=== PATIENT | female | born 2000 | race Caucasian/White ===

== ENCOUNTER 2020-08-22 23:43 | Emergency (ER) | payer MEDICAID ==
[~2020-08-22] VITALS: Ht 162.5 cm; Wt 70.0 kg
--- NOTE | 2020-08-23 00:03 | ED GU-Female ---
General Stated Complaint: LEFT SIDE PAIN/ ANXIETY ATTACKS Source: patient Exam Limitations: no limitations History of Present Illness Date Seen by Provider: Aug 22, 2020 Time Seen by Provider: 23:52 Initial Comments Patient to ER by private conveyance with her family chief complaint for 2 days she is had burning pain in her left flank. Dysuria is getting little worse. No discharge or dyspareunia. No fevers chills nausea vomiting or diarrhea. Patient states she started having anxiety attacks today after drinking a Monster energy drink. She is never drank it before. She does not typically have anxiety. Allergies and Home Medications Allergies Coded Allergies: No Known Drug Allergies (Unverified , 08/22/20) Patient Home Medication List Home Medication List Reviewed: Yes Review of Systems Review of Systems Constitutional: No chills, No fever, No malaise EENTM: No ear discharge, No ear pain Respiratory: No cough, No short of breath Cardiovascular: No edema, No palpitations Gastrointestinal: abdominal pain; No constipation, No diarrhea, No nausea Genitourinary: burning; denies discharge : No Musculoskeletal: No back pain, No joint pain Past Ohlzlas-Khkigv-Luclvq Hx Patient Social History Tobacco Use?: No Use of E-Cig and/or Vaping dev: No Substance use?: No Physical Exam Vital Signs Vital Signs - First Documented 08/23/20 00:01 Temp 36.7 Pulse 122 Resp 20 B/P (MAP) 130/81 (97) Pulse Ox 98 O2 Delivery Room Air Capillary Refill : Height, Weight, BMI Height: '" Weight: lbs. oz. kg; BMI Method: General Appearance: WD/WN, mild distress HEENT: PERRL/EOMI, pharynx normal Cardiovascular: normal peripheral pulses, regular rate, rhythm, tachycardia (120) Respiratory: no respiratory distress, no accessory muscle use Gastrointestinal: normal bowel sounds, non tender, soft, no organomegaly Back: normal inspection, no vertebral tenderness, CVA tenderness (L) (Very mild) Neurologic/Psychiatric: alert, oriented x 3, other (Very anxious affect) Progress/Results/Core Measures Suspected Sepsis SIRS Temperature: Pulse: Respiratory Rate: Blood Pressure / Mean: Results/Orders Lab Results Laboratory Tests Test 08/23/20 00:00 Range/Units Urine Color YELLOW Urine Clarity CLEAR Urine pH 6.0 5-9 Urine Specific [place] 1.010 L 1.016-1.022 Urine Protein NEGATIVE NEGATIVE Urine Glucose (UA) NEGATIVE NEGATIVE Urine Ketones NEGATIVE NEGATIVE Urine Nitrite NEGATIVE NEGATIVE Urine Bilirubin NEGATIVE NEGATIVE Urine Urobilinogen 0.2 < = 1.0 MG/DL Urine Leukocyte Esterase NEGATIVE NEGATIVE Urine RBC (Auto) 3+ H NEGATIVE Urine RBC 5-10 H /HPF Urine WBC 0-2 /HPF Urine Squamous Epithelial Cells >50 H /HPF Urine Crystals NONE /LPF Urine Bacteria LARGE H /HPF Urine Casts NONE /LPF Urine Mucus NEGATIVE /LPF Urine Culture Indicated NO My Orders Orders - MEENA VILLEDA Ua Culture If Indicated (08/22/20 23:49) Urine Bedside (08/22/20 23:49) Vital Signs/I&O 08/23/20 00:01 Temp 36.7 Pulse 122 Resp 20 B/P (MAP) 130/81 (97) Pulse Ox 98 O2 Delivery Room Air Capillary Refill : Progress Note #1: Time: 00:03 Progress Note Sinus tachycardia likely related to her anxiety and drinking of energy drink. We have encouraged her not to do that again and will observe her while we get a urinalysis. Progress Note #2: Time: 01:49 Progress Note She is having a little bit of hives and she thinks may be from some of the detergents on the sheets. She says she gets these whenever she is exposed to certain soaps. We will give her some Claritin since he is having mild itching on her legs. I suspect that her urinary tract infection would be best served with some Macrobid, Diflucan and discussed STD testing. She says she thinks is unlikely but she would like to be tested. Departure Impression Primary Impression: UTI (urinary tract infection) Qualified Codes: N30.01 - Acute cystitis with hematuria Additional Impressions: Hives Anxiety about health Disposition: 01 HOME, SELF-CARE Condition: Stable Departure-Patient Inst. Decision time for Depature: 01:51 Referrals: NO,LOCAL PHYSICIAN (PCP/Family) Primary Care Physician Patient Instructions: Urinary Tract Infection, Adult ED, Hives (DC) Add. Discharge Instructions: Drink plenty of fluids. Macrobid 1 capsule twice a day. Zyrtec or Claritin as necessary for hives. Benadryl 1 to 2 tablets every 6 hours as necessary for breakthrough itching and hives. Fluconazole 1 tablet. Expect results in the next 2 days. If we do not call you that means everything was okay and no further intervention is necessary. Scripts Fluconazole (Fluconazole) 200 Mg Tablet 200 MG PO DAILY for 1 Day, #1 TAB 0 Refills Prov: MEENA VILLEDA 08/23/20 Nitrofurantoin Monohyd/M-Cryst (Macrobid 100 mg Capsule) 100 Mg Capsule 1 TAB PO BID for 7 Days, #14 CAP 0 Refills Prov: MEENA VILLEDA 08/23/20 MEENA VILLEDA Aug 23, 2020 00:03
[2020-08-23 00:22] LABS: BILIRUBIN,URINE NEGATIVE (NEGATIVE); CLARITY,URINE CLEAR; COLOR,URINE YELLOW; GLUCOSE, URINE (UA) NEGATIVE (NEGATIVE); KETONES,URINE NEGATIVE (NEGATIVE); LEUKOCYTE ESTERASE ,URINE NEGATIVE (NEGATIVE); NITRITE,URINE NEGATIVE (NEGATIVE); PROTEIN,URINE NEGATIVE (NEGATIVE)
[2020-08-23 00:32] LABS: BACTERIA,URINE LARGE /HPF; SQUAMOUS EPITHELIAL CELL,UR >50 /HPF; WBC,URINE 0-2 /HPF
[2020-08-23] MEDS ORDERED: NITR-65 PO (01:52)
[2020-08-23] MEDS ORDERED: FLUC200T5 PO (01:52)
[2020-08-23] MEDS ORDERED: LORATADINE (CLARITIN) 10 MG TAB PO ONE (02:00)
[2020-08-23 02:06] VITALS: BP 106/73
== END 2020-08-23 02:06 | disposition home or self-care (01) ==
LOC: ER 23:47
DX: N39.0 Urinary tract infection, site not specified (principal)
CPT/HCPCS: 81000; 84703; 99283

== ENCOUNTER 2020-08-31 00:46 | Emergency (ER) | payer MEDICAID ==
[~2020-08-31] VITALS: Ht 162.6 cm; Wt 73.3 kg
[~2020-08-31 00:46] MED LIST: FLUC200T5 PO; NITR-65 PO
[2020-08-31 01:09] VITALS: BP 116/73
--- NOTE | 2020-08-31 01:36 | ED General ---
General Chief Complaint: General Problems/Pain Stated Complaint: POSS ALLERGIC RX TO COVID SHOT,TINGLING ALL OVER Source of Information: Patient History of Present Illness Date Seen by Provider: Aug 31, 2020 Time Seen by Provider: 01:20 Initial Comments PT ARRIVES VIA POV FROM HOME WITH AN AND PRE-SCHOOL AGED BOY. PT STATES SHE GOT HER FIRST PFIZER COVID-19 VACCINE YESTERDAY AROUND 11:30 AM, THEN WENT HOME AND WENT TO SLEEP AND WOKE UP AT 2300 TONIGHT, AND WHEN SHE WOKE UP SHE STATES "I BROKE OUT IN BUMPS ALL OVER MY BODY" SHE STATES THE BUMPS LASTED 10 MINUTES AND THEN WENT AWAY. STATES THE BUMPS WERE ITCHY AND SHE STILL FEELS ITCHY. STATES SHE FEELS TINGLY ALL OVER HER ARMS AND LEGS NO SWELLING ANYWHERE NO NAUSEA/VOMITING/DIARRHEA NO CHEST PAIN OR SHORTNESS OF BREATH NO SYNCOPE PT THINKS SHE IS HAVING A REACTION TO THE COVID VACCINE. THEN STATES SHE HAS HAD REACTIONS TO SOAPS AND DETERGENTS IN THE PAST AND THOUGHT MAYBE THAT WAS WHAT WAS CAUSING HER SYMPTOMS. SHE DENIES ANY NEW PRODUCTS OR FOODS. HAS NOT TAKEN ANYTHING FOR SYMPTOMS PT HAS HISTORY OF ANXIETY, AND STATES SHE TAKES AN UNKNOWN MEDICATION FOR ANXIETY, BUT HAS NOT TAKEN ANY TODAY PT [place] HERE [place] HAD A BABY 2 MONTHS AGO, IS NOT . DELIVERED AT [facility] HAD DEPO SHOT, AND NEXT ONE IS DUE 09/18/20. IS ON HER PERIOD NOW. PT WAS HERE 08/22/20 FOR ANXIETY, HAD BEEN DRINKING ALOT OF MONSTER ENERGY DRINKS AND WAS CAUSING HER TO HAVE ANXIETY SHE ALSO COMPLAINED OF THESE SAME "BUMPS" AT THAT VISIT. PT WAS DX WITH UTI AT THAT VISIT AND PLACED ON MACROBID AND FLUCONAZOLE. 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 PCP: [facility] Allergies and Home Medications Allergies Coded Allergies: No Known Drug Allergies (Unverified , 08/22/20) Home Medications Fluconazole 200 Mg Tablet, 200 MG PO DAILY Prescribed by: MEENA VILLEDA on 08/23/20151 Nitrofurantoin Monohyd/M-Cryst 100 Mg Capsule, 1 TAB PO BID Prescribed by: MEENA VILLEDA on 08/23/20151 Patient Home Medication List Home Medication List Reviewed: Yes Review of Systems Review of Systems Constitutional: no symptoms reported EENTM: no symptoms reported Respiratory: no symptoms reported Cardiovascular: no symptoms reported Gastrointestinal: no symptoms reported Genitourinary: no symptoms reported, see HPI Musculoskeletal: no symptoms reported, see HPI Skin: see HPI Psychiatric/Neurological: See HPI, Anxiety Past Czlryvv-Wvushu-Wupbft Hx Patient Social History Tobacco Use?: No (DENIES) Use of E-Cig and/or Vaping dev: No (DENIES) Substance use?: No (DENIES) Alcohol Use?: No (DENIES) Past Medical History Surgeries: Yes Gallbladder Respiratory: No Cardiac: No Neurological: No Genitourinary: Yes Bladder Infection Gastrointestinal: Yes (S/P CHOLECYSTECTOMY) Gall Bladder Disease Musculoskeletal: No Endocrine: No HEENT: No Cancer: No Psychosocial: Yes Anxiety Integumentary: No Blood Disorders: No Physical Exam Vital Signs Vital Signs - First Documented 08/31/20 01:09 Temp 36.6 Pulse 102 Resp 18 B/P (MAP) 116/73 (87) Pulse Ox 98 O2 Delivery Room Air Capillary Refill : Height, Weight, BMI Height: '" Weight: lbs. oz. kg; 26.00 BMI Method: General Appearance: No Apparent Distress, WD/WN HEENT: PERRL/EOMI, TMs Normal, Normal ENT Inspection, Pharynx Normal, Moist Mucous Membranes Neck: Normal Inspection Respiratory: Normal Breath Sounds, No Accessory Muscle Use, No Respiratory Distress Cardiovascular: Regular Rate, Rhythm, No Edema, No JVD, No Murmur, Normal Peripheral Pulses Gastrointestinal: Non Tender, Soft Back: Normal Inspection Extremity: Normal Capillary Refill, Normal Inspection, Normal Range of Motion, Non Tender, No Calf Tenderness, No Pedal Edema Neurologic/Psychiatric: Alert, Oriented x3, No Motor/Sensory Deficits, cardiopulmonary specialist II- XII Norm as Tested; No Abnormal Cerebellar Tests; Other (FLAT AFFECT) Skin: Normal Color, Warm/Dry; No Rash (THERE IS NO RASH PRESENT ANYWHERE ON BODY); Tattoos/Piercings (MULTIPLE TATTOOS) Progress/Results/Core Measures Suspected Sepsis SIRS Temperature: Pulse: Respiratory Rate: Blood Pressure / Mean: Results/Orders Vital Signs/I&O 08/31/20 01:09 Temp 36.6 Pulse 102 Resp 18 B/P (MAP) 116/73 (87) Pulse Ox 98 O2 Delivery Room Air Capillary Refill : Departure Impression Primary Impression: Anxiety Additional Impression: RECENT COVID VACCINE Disposition: HOME, SELF-CARE Condition: Stable Departure-Patient Inst. Decision time for Depature: 01:30 Referrals: [facility] Patient Instructions: COVID-19 Vaccine (mRNA) iiyuma FDA Fact Sheet Add. Discharge Instructions: TYLENOL AND MOTRIN NEEDED FOR PAIN CLARITIN OR BENADRYL NEEDED FOR RASH OR ITCHING FOLLOW UP WITH [facility] IF SYMPTOMS PERSIST, RETURN TO ER IF SYMPTOMS WORSEN All discharge instructions reviewed with patient and/or family. Voiced und erstanding. FOREST KAY DO Aug 31, 2020 01:36
== END 2020-08-31 01:39 | disposition home or self-care (01) ==
LOC: EDUNIT# 00:46 → ER 00:50
DX: F41.9 Anxiety disorder, unspecified (principal)
CPT/HCPCS: 99281

== ENCOUNTER 2020-09-06 23:30 | Emergency (ER) | payer MEDICAID ==
[~2020-09-06] VITALS: Ht 162.5 cm; Wt 75.0 kg
[2020-09-07 00:01] LABS: BILIRUBIN,URINE NEGATIVE (NEGATIVE); CLARITY,URINE CLEAR; COLOR,URINE YELLOW; GLUCOSE, URINE (UA) NEGATIVE (NEGATIVE); KETONES,URINE TRACE (NEGATIVE); LEUKOCYTE ESTERASE ,URINE NEGATIVE (NEGATIVE); NITRITE,URINE NEGATIVE (NEGATIVE); PROTEIN,URINE NEGATIVE (NEGATIVE)
[2020-09-07 00:08] LABS: BACTERIA,URINE TRACE /HPF
[2020-09-07] MEDS ORDERED: IBUPROFEN TABLET 200 MG TAB PO ONE (00:45)
--- NOTE | 2020-09-07 00:47 | ED Back Pain ---
General Chief Complaint: Back Problems Stated Complaint: LEFT SIDE PAIN Nursing Triage Note: Pt ambulatory into ER with complaint of Lower Left Back pain x1 week. Pt states that she was seen and started on an antibiotic for a UTI, but feels like the pain hasn't gotten any better. Pain worsened this evening and patient decided to come in to be seen. Source of Information: Patient Exam Limitations: No Limitations History of Present Illness Date Seen by Provider: Sep 06, 2020 Time Seen by Provider: 23:57 Allergies and Home Medications Allergies Coded Allergies: No Known Drug Allergies (Unverified , 08/22/20) Home Medications Fluconazole 200 Mg Tablet, 200 MG PO DAILY Prescribed by: MEENA VILLEDA on 08/23/20151 Nitrofurantoin Monohyd/M-Cryst 100 Mg Capsule, 1 TAB PO BID Prescribed by: MEENA VILLEDA on 08/23/20151 Past Welukix-Agvngr-Fwcake Hx Patient Social History Tobacco Use?: No Use of E-Cig and/or Vaping dev: No Substance use?: No Alcohol Use?: No Pt feels they are or have been: No Immunizations Up To Date Influenza Vaccine Up-to-Date: No; Not Current First/Initial COVID19 Vaccinat: 08/20/20 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 oz. kg; 28.00 BMI Method: Progress/Results/Core Measures Results/Orders Lab Results Laboratory Tests Test 09/06/20 23:54 Range/Units Urine Color YELLOW Urine Clarity CLEAR Urine pH 6.0 5-9 Urine Specific [place] >=1.030 1.016-1.022 Urine Protein NEGATIVE NEGATIVE Urine Glucose (UA) NEGATIVE NEGATIVE Urine Ketones TRACE H NEGATIVE Urine Nitrite NEGATIVE NEGATIVE Urine Bilirubin NEGATIVE NEGATIVE Urine Urobilinogen 0.2 < = 1.0 MG/DL Urine Leukocyte Esterase NEGATIVE NEGATIVE Urine RBC (Auto) NEGATIVE NEGATIVE Urine RBC NONE /HPF Urine WBC NONE /HPF Urine Squamous Epithelial Cells 2-5 /HPF Urine Crystals NONE /LPF Urine Bacteria TRACE /HPF Urine Casts NONE /LPF Urine Mucus LARGE H /LPF Urine Culture Indicated NO My Orders Orders - CHARLES GREGORY MD Ua Culture If Indicated (09/06/20 23:39) Ibuprofen Tablet (Motrin Tablet) (09/07/20 00:45) Vital Signs/I&O 09/07/20 00:11 Temp 37.0 Pulse 95 Resp 18 B/P (MAP) 111/71 (84) Pulse Ox 96 O2 Delivery Room Air Blood Pressure Mean: 84 Departure Impression Primary Impression: Low back pain Qualified Codes: M54.42 - Lumbago with sciatica, left side Additional Impression: Lumbar radiculopathy Disposition: HOME, SELF-CARE Condition: Stable Departure-Patient Inst. Referrals: NO,LOCAL PHYSICIAN (PCP/Family) Primary Care Physician Patient Instructions: Low Back Pain in Adults, Radiculopathy Add. Discharge Instructions: For pain you may take ibuprofen up to 600 mg every 6 hours as needed and/or Tylenol (acetaminophen) up to 1000 mg every 6 hours as needed. Gentle heat and gentle stretching may help reduce back tension. Avoid excessive bending, lifting, or and even tension on your back such as carrying a car seat. Use cyclobenzaprine at night to help your muscles relax while you sleep. Drink plenty of clear liquids to stay well-hydrated. Call with questions or concerns. Follow-up with a primary care provider if not improved in the next week or 2. Return to the ER if you have worsening symptoms. All discharge instructions reviewed with patient and/or family. Voiced understanding. CHARLES GREGORY MD Sep 07, 2020 00:47
[2020-09-07 00:52] VITALS: BP 106/70
[2020-09-07] MEDS ORDERED: CYCL10TA9 PO (12:15)
== END 2020-09-07 00:52 | disposition home or self-care (01) ==
LOC: EDUNIT# 23:30 → ER 23:34
DX: M54.16 Radiculopathy, lumbar region (principal)
CPT/HCPCS: 81000; 99283

== ENCOUNTER 2021-02-06 12:55 | Emergency (ER) | payer MEDICAID ==
[~2021-02-06] VITALS: Ht 165 cm; Wt 76.0 kg
[~2021-02-06 12:55] MED LIST changes: +CYCL10TA25 PO
[2021-02-06 13:57] LABS: BILIRUBIN,URINE NEGATIVE (NEGATIVE); CLARITY,URINE CLEAR; COLOR,URINE YELLOW; GLUCOSE, URINE (UA) NEGATIVE (NEGATIVE); KETONES,URINE NEGATIVE (NEGATIVE); LEUKOCYTE ESTERASE ,URINE NEGATIVE (NEGATIVE); NITRITE,URINE NEGATIVE (NEGATIVE); PROTEIN,URINE NEGATIVE (NEGATIVE)
--- NOTE | 2021-02-06 14:01 | ED Cough/URI ---
General Chief Complaint: Cough/Cold/Flu Symptoms Stated Complaint: COUGH/SORE THROAT,CHEST PAIN Nursing Triage Note: PT AMB TO ER WITH C/O SORE THROAT AND COUGH FOR 2 DAYS. PT STAYED THE NIGHT WITH A FRIEND LAST WEEK WHO TESTED POS FOR COVID AFTER SHE STAYED History of Present Illness Date Seen by Provider: Feb 06, 2021 Time Seen by Provider: 13:25 Initial Comments 20-year-old female presents with a 2-day history of productive cough, sore throat and sinus congestion. She was exposed to a friend who was positive for Covid approximately 5 to 7 days ago. She has received her Covid vaccine but did not get an influenza vaccine. She denies any fevers. She has had no nausea, vomiting, or diarrhea. She has not taken any fkop-rwr-vecnzdi medications for her symptoms, she is on hydroxyzine for anxiety and is uncertain about interactions. Timing/Duration: yesterday Severity/Quality: productive cough Prior Episodes/Possible Cause: no prior episodes Associated Symptoms: cough, muscle aches, nasal congestion, sore throat Allergies and Home Medications Allergies Coded Allergies: No Known Drug Allergies (Unverified , 08/22/20) Patient Home Medication List Home Medication List Reviewed: Yes Cyclobenzaprine HCl (Cyclobenzaprine HCl) 10 Mg Tablet, 10 MG PO Q8H PRN for SPASMS Prescribed by: MEENA VILLEDA on 09/07/20 1215 Fluconazole (Fluconazole) 200 Mg Tablet, 200 MG PO DAILY Prescribed by: MEENA VILLEDA on 08/23/20 0152 Nitrofurantoin Monohyd/M-Cryst (Macrobid 100 mg Capsule) 100 Mg Capsule, 1 TAB PO BID Prescribed by: MEENA VILLEDA on 08/23/20 0152 Review of Systems Review of Systems Constitutional: see HPI; No fever; malaise EENTM: see HPI, nose congestion, throat pain Respiratory: see HPI, cough; No dyspnea on exertion, No short of breath Cardiovascular: no symptoms reported, see HPI Gastrointestinal: no symptoms reported, see HPI : No LMP: Jan 01, 2021 Musculoskeletal: no symptoms reported, see HPI All Other Systems Reviewed Negative Unless Noted: Yes Past Ugvwbdm-Mmnesh-Gwafdz Hx Patient Social History Tobacco Use?: No Use of E-Cig and/or Vaping dev: Yes E-Cig or Vaping type used: Nicotine Use of E-Cig and/or Vaping Maxim: Current Everyday User Substance use?: No Alcohol Use?: No Pt feels they are or have been: No Immunizations Up To Date Influenza Vaccine Up-to-Date: No; Not Current First/Initial COVID19 Vaccinat: 08/30/20 Second COVID19 Vaccination Johnny: 09/28/20 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 oz. kg; 27.00 BMI Method: General Appearance: WD/WN, no apparent distress HEENT: PERRL/EOMI, normal ENT inspection, TMs normal, pharynx normal; No pharyngeal erythema, No tonsillar exudate Neck: non-tender, full range of motion, supple, normal inspection Respiratory: chest non-tender, lungs clear, normal breath sounds Cardiovascular: normal peripheral pulses, regular rate, rhythm, no edema Gastrointestinal: normal bowel sounds, non tender, soft Neurologic/Psychiatric: no motor/sensory deficits, alert, normal mood/affect, oriented x 3 Skin: normal color, warm/dry Progress/Results/Core Measures Suspected Sepsis SIRS Temperature: Pulse: 104 Respiratory Rate: 18 Blood Pressure 132 /74 Mean: 93 Results/Orders Lab Results Laboratory Tests Test 02/06/21 13:32 02/06/21 13:45 Range/Units Influenza Type A Antigen NEGATIVE NEGATIVE Influenza Type B Antigen NEGATIVE NEGATIVE SARS-CoV-2 RNA (RT-PCR) Positive H Negative Urine Color YELLOW Urine Clarity CLEAR Urine pH 6.0 5-9 Urine Specific [place] 1.015 L 1.016-1.022 Urine Protein NEGATIVE NEGATIVE Urine Glucose (UA) NEGATIVE NEGATIVE Urine Ketones NEGATIVE NEGATIVE Urine Nitrite NEGATIVE NEGATIVE Urine Bilirubin NEGATIVE NEGATIVE Urine Urobilinogen 0.2 < = 1.0 MG/DL Urine Leukocyte Esterase NEGATIVE NEGATIVE Urine RBC (Auto) NEGATIVE NEGATIVE Urine RBC NONE /HPF Urine WBC NONE /HPF Urine Squamous Epithelial Cells 0-2 /HPF Urine Crystals NONE /LPF Urine Bacteria NEGATIVE /HPF Urine Casts NONE /LPF Urine Mucus NEGATIVE /LPF Urine Culture Indicated NO My Orders Orders - WON FENTON PADMAJA Influenza A & B Antigens (02/06/21 13:40) Covid 19 Inhouse Test (02/06/21 13:40) Urine Bedside (02/06/21 13:40) Ua Culture If Indicated (02/06/21 13:40) Vital Signs/I&O 02/06/21 02/06/21 13:25 14:30 Temp 36.6 36.6 Pulse 104 97 Resp 18 18 B/P (MAP) 132/74 (93) 113/87 Pulse Ox 99 99 O2 Delivery Room Air Room Air Capillary Refill : Blood Pressure Mean: 93 Progress Note : Time: 13:25 Progress Note Patient seen and evaluated, she is afebrile and her room air SaO2 is 99%. We will do influenza and Covid testing for now. patient would prefer to not have an IV or blood draw, she is drinking 2 glasses of water. 1400 patient + for COVID, discussed with patient. Discharge instructions were given precautions reviewed with the patient. All questions answered. Departure Impression Primary Impression: Cough Additional Impression: COVID-19 Disposition: 01 HOME, SELF-CARE Condition: Stable Departure-Patient Inst. Decision time for Depature: 14:05 Referrals: [facility],LOCAL PHYSICIAN (PCP) Primary Care Physician Patient Instructions: COVID-19 (DC) Add. Discharge Instructions: Stay home and avoid contact with other people until you are symptom-free for 72 hours without medication. On license of [facility] will notify you of isolation guidelines. Notify any close contacts 48 hours before your symptoms began, they do not need testing unless they become symptomatic. Take an Immune Multi Vitamin with zinc, vitamin C and vitamin D. Take aspirin 81 mg once daily. Continue this for 3 to 4 weeks. Increase water intake, 16 ounces every 2 hours while awake. Sleep on your stomach. Call your primary care provider if symptoms worsen, especially if difficulty breathing. They can manage many of your symptoms by televisit or phone. Walk 5-10 min, every hour, while awake, take deep breaths and cough. You may alternate between Tylenol 650 mg and ibuprofen 600 mg every 4 hours for pain or fever. You may use Afrin ymat-fwr-rwbsaky nasal spray for 3 to 4 days as needed for symptoms. You may take Delsym cough medicine for congestion every 12 hours as needed. Return to the emergency department for new, urgent healthcare needs. All discharge instructions reviewed with patient and/or family. Voiced und erstanding. WON FENTON Feb 06, 2021 14:01
[2021-02-06 14:09] LABS: BACTERIA,URINE NEGATIVE /HPF; SQUAMOUS EPITHELIAL CELL,UR 0-2 /HPF
[2021-02-06 14:30] VITALS: BP 113/87
== END 2021-02-06 14:38 | disposition home or self-care (01) ==
LOC: EDUNIT# 12:55 → ER 12:59
DX: U07.1 COVID-19 (principal); F41.9 Anxiety disorder, unspecified; F17.290 Nicotine dependence, other tobacco product, uncomplicated; Z79.899 Other long term (current) drug therapy
CPT/HCPCS: 81000; 84703; 87636; 87804; 99283